=== PATIENT | female | born 1965 | race Two or more races ===

== ENCOUNTER 2023-12-03 14:10 | Emergency (ER) | payer MEDICAID ==
[~2023-12-03] VITALS: Ht 152.4 cm; Wt 85.7 kg
[~2023-12-03 14:10] MED LIST: TRAM-297
[2023-12-03] MEDS ORDERED: IBU600T PO (17:09)
[2023-12-03 17:31] VITALS: BP 141/78; RESP 16; TEMP 97.4
[2023-12-03 17:33] VITALS: PULSE 51; O2SAT 96
[2023-12-03] MEDS: HYDROcodone-ACET 10/325MG TAB PO ONE (17:33)
== END 2023-12-03 18:24 | disposition home or self-care (01) ==
LOC: ER 14:10
DX: R51.9 Headache, unspecified (principal); Z98.890 Other specified postprocedural states
CPT/HCPCS: 70450; 82962